=== PATIENT | male | born 1945 | race Caucasian/White ===

== ENCOUNTER → 2017-04-10 07:55 | Outpatient (CLI) | payer OTHER ==
--- NOTE | ~2017-04-10 | EC ---
PATIENT:LIBIA SEXTON SR DATE OF SERVICE: 04/10/17 SEX: M MEDICAL RECORD: [id number] DATE OF : [birth year] LOCATION:[facility] AGE OF PATIENT: 72 ADMISSION DATE: 04/10/17 REFERRING PHYSICIAN: INTERPRETING PHYSICIAN: UCHE BOSCH MD ECHOCARDIOGRAM REPORT ECHO CHARGES 4 ECHO COMPLETE CLINICAL DIAGNOSIS: CAD ECHOCARDIOGRAPHIC MEASUREMENTS (adult normal given) AC root (d.<3.7cm) 3.1 cm LV Septum d (<1.2 cm> 1.2 cm Valve Excursion 1.6 cm LV Septum (systole) 1.5 cm Left Atria (s.<4.0cm> 3.0 cm LVPW d(<1.2cm) 1.1 cm RV (d.<2.3cm) 2.3 cm LVPW (sytole) 1.5 cm LV diastole(<5.6CM) 5.1 cm MV E-F(>70mm/sec) cm LV systole 3.6 cm LVOT Diameter 1.7 cm MV exc.(>10mm) cm Est.ejection fraction (50-75%) % Pericardial Effusion N DOPPLER: LVIT cm/sec A 111.0cm/sec E 88.0 cm/sec LA cm/sec RVSP 21.0 mmHg LVOT 96.0 cm/sec AOP1/2T m/s Asc. Ao 181 cm/sec RVOT 60.0 cm/sec RA cm/sec PA 111 cm/sec AV Gradient Peak 13.1 mmHg AV Mean 6.8 mmHg AV Area 1.0 cm MV Gradient Peak 6.1 mmHg MV Mean 2.7 mmHg MV Area cm COMMENTS: Apartment Maintenance Worker: 1 [facility] Analyst: 1 Dr. Bosch TAPE# PACS DATE OF SERVICE: 04/10/2017 FINDINGS: 1. Left ventricular chamber size is within normal limits. Left ventricular systolic function is normal. Overall ejection fraction estimated at 60%. 2. Left atrium, right atrium, and right ventricular chamber sizes are within normal limits. 3. Valvular structures have normal structure and motion. 4. Doppler interrogation reveals mild mitral regurgitation. No other valvular insufficiency or stenosis. Pulmonary systolic pressure is normal estimated at ECHOCARDIOGRAM REPORT [id number] LIBIA SEXTON SR 21 mmHg. 5. No evidence of pericardial effusion or left ventricular thrombus. TRANSINT:[id number] Voice Confirmation ID: [id number] DOCUMENT ID: [id number] UCHE BOSCH MD CC: [id number] DICTATION DATE: 04/10/17 1126 [employer] B[employer]ER [employer] TOPPER: 04/10/17 1252 REG [facility] [address] [id number]
[2017-04-10 08:43] LABS: ANION GAP 10.6 mmol/L (8-16); BILIRUBIN - TOTAL 0.37 mg/dL (0.2-1.3); CALCIUM 9.5 mg/dL (8.5-10.1); CREATININE - SERUM 1.2 mg/dL (0.6-1.3); POTASSIUM - SERUM 4.6 mmol/L (3.5-5.1); PROTEIN - SERUM 7.5 g/dL (6.4-8.2)
[2017-04-10 08:48] LABS: APPEARANCE CLEAR (CLEAR); BILIRUBIN NEGATIVE (NEGATIVE); COLOR YELLOW (YELLOW); GLUCOSE 1000 mg/dL (NEGATIVE); KETONE SMALL mg/dL (NEGATIVE); NITRITE NEGATIVE (NEGATIVE); PROTEIN TRACE mg/dL (NEGATIVE)
[2017-04-10 08:50] LABS: BACTERIA FEW /hpf (NONE SEEN); EPITHELIAL CELLS OCC /hpf (0-5); MUCUS <1+ /lpf (NONE SEEN)
== END | disposition home or self-care (01) ==
LOC: D.ECHO 07:55
PROVIDERS: Orthopaedic Surgery
DX: E11.9 Type 2 diabetes mellitus without complications (principal)